=== PATIENT | male | born 1995 | race Caucasian/White ===

== ENCOUNTER 2020-10-16 07:57 | Emergency (ER) | payer OTHER ==
[2020-10-16 08:11] VITALS: BP 132/85
--- NOTE | 2020-10-16 09:23 | ED Physician Documentation ---
PD HPI LOWER EXT INJURY - Stated complaint Stated Complaint: R ANKLE PX - Chief complaint Chief Complaint: Ext Problem - History obtained from History obtained from: Patient - History of Present Illness PD HPI LOW EXT INJURY LOCATION: Right, Ankle Type of injury: Twist (dorsal) Where injury occurred: Street Timing - onset: How many days ago (2) Timing - duration: Days (2) Timing - details: Abrupt onset, Still present Improved by: Rest, Ice, Immobilization Worsened by: Moving, Palpating Associated symptoms: Swelling, Discolored. No: Weakness, Numbness Contributing factors: No: Anticoagulated Similar symptoms before: Diagnosis (ankle sprain) Recently seen: Not recently seen - Additional information Additional information: 24-year-old male who has had prior ankle sprains was out running 2 days ago when he had a hard dorsiflexion of his ankle and he is complaining of pain to the medial aspect of the ankle some discoloration along the course of the posterior tibial tendon. He reports functional difficulty with dorsiflexion. Review of Systems Constitutional: denies: Fever Respiratory: denies: Cough GI: denies: Vomiting PD PAST MEDICAL HISTORY - Past Medical History Past Medical History: Yes Cardiovascular: None Respiratory: None Neuro: None Endocrine/Autoimmune: None GI: None : None HEENT: None Psych: None Musculoskeletal: None Derm: None - Past Surgical History Past Surgical History: No - Present Medications Home Medications: Ambulatory Orders Medication Instructions Recorded Confirmed No Known Home Medications 01/10/20 01/10/20 - Allergies Allergies/Adverse Reactions: Allergies Allergy/AdvReac Type Severity Reaction Status Date / Time Penicillins Allergy Hives Verified 10/16/20 08:11 - Social History Does the pt smoke?: No Smoking Status: Never smoker Does the pt drink ETOH?: No - Immunizations Immunizations are current?: Yes PD ED PE NORMAL - Vitals Vital signs reviewed: Yes (hypertensive) - General General: Alert and oriented X 3, No acute distress, Well developed/nourished - HEENT HEENT: Atraumatic, PERRL, EOMI - Respiratory Respiratory: No respiratory distress - Derm Derm: Normal color, Warm and dry, No rash - Extremities Extremities: No deformity, No edema, Other (There is dense ecchymosis along the course of the posterior tibial tendon. There is tenderness along this area and not specifically to the malleolus. There is no tenderness to the proximal first. There is no tenderness to the lateral aspect of the ankle. There is swelling both medial and lateral.) Results - Vitals Vitals: Vital Signs - 24 hr 10/16/20 08:05 Temperature 36.9 C Heart Rate 94 Respiratory 16 Rate Blood Pressure 132/85 H O2 Saturation 99 Oxygen O2 Source Room air - Rads (name of study) ankle Radiology: Prelim report reviewed (Impression: Soft tissue swelling and joint effusion without evidence of acute osseous abnormality.), EMP read indepedently, See rad report Procedures - Splint (location) ankle Splint applied by: Tech Type of splint: Fiberglass, Posterior Other: Patient tolerated well, No complications, Neurovascular intact, Good alignment, Crutches provided (has own crutches) PD MEDICAL DECISION MAKING - ED course Complexity details: reviewed results, re-evaluated patient, considered differential, d/w patient ED course: 24-year-old male who ambulated in here on crutches after injuring his ankle 2 days ago has swelling and ecchymosis along the course of the posterior tibial tendon concerning for a tendon injury or injury to the tarsal tunnel. He is placed into a posterior splint and onto crutches and we will have him follow-up with orthopedics. Departure - Departure Disposition: 01 Home, Self Care Clinical Impression: Left ankle sprain Qualifiers: Encounter type: initial encounter Involved ligament of ankle: other ligament Qualified Code(s): S93.492A - Sprain of other ligament of left ankle, initial encounter Condition: Stable Instructions: ED Sprain Ankle W X Ray Follow-Up: AYDEN Coburn [Provider Group] [facility] [Provider Group]
--- NOTE | 2020-10-16 09:33 | XRAY Report ---
PROCEDURE: Ankle 3 View RT INDICATIONS: ankle inj TECHNIQUE: 3 views of the ankle were acquired. COMPARISON: None FINDINGS: Bones: No fractures. Alignment is normal. Ankle mortise is intact. Joint spaces are maintained. Soft tissues: Diffuse soft tissue swelling throughout the ankle. Small joint effusion. IMPRESSION: Soft tissue swelling and joint effusion without evidence of an acute osseous abnormality. Reviewed by: Michel Calderón DO on 10/16/2020 8:31 AM JEFF Approved by: Michel Calderón DO on 10/16/2020 8:31 AM JEFF Station ID: [id number]
== END 2020-10-16 09:55 | disposition home or self-care (01) ==
LOC: ED 07:57
DX: S93.491A Sprain of other ligament of right ankle, initial encounter (principal); S90.01XA Contusion of right ankle, initial encounter; X50.1XXA Overexertion from prolonged static or awkward postures, initial encounter; Y93.02 Activity, running; Y92.410 Unspecified street and highway as the place of occurrence of the external cause
CPT/HCPCS: 29515; 99282

== ENCOUNTER 2021-02-09 08:02 | Outpatient (CLI) | payer OTHER ==
--- NOTE | 2021-02-09 14:37 | MRI Report ---
PROCEDURE: Ankle RT W/O INDICATIONS: RIGHT ANKLE PAIN TECHNIQUE: Noncontrast sagittal T1 spin echo and T2 fast spin echo with fat saturation, axial proton density fas t spin echo and T2 fast spin echo with fat saturation, coronal T1 spin echo and T2 fast spin echo wit h fat saturation through the ankle/hindfoot. COMPARISON: None. FINDINGS: Image quality: Excellent. Bones and joints: Small to moderate amount of tibiotalar joint effusion is seen. Trace amount of flui d is seen in subtalar joint. There is marrow edema involving medial malleolus and anterior portion of distal tibia extending to distal tibial plafond. No discrete fracture line is seen. Mild edema invol ving lateral malleolus is also seen. There is also marrow edema seen in anterolateral aspect of talus and posterior medial portion of talus. No evidence of osteochondral injury of the talar dome is seen . Medial structures: The posterior tibialis is moderately thickened with low-grade intrasubstance T2 h yperintense signal at the level of talus and talonavicular joint suggestive of tendinosis and low-gra de intrasubstance partial thickness tear. The flexor digitorum longus, and flexor hallucis longus ten dons are intact. The posterior tibial neurovascular bundle appears normal within the tarsal tunnel, without extrinsic mass effect. Fluid signal and thickening involving superficial and deep portion of the deltoid ligament is seen suggestive of ligament sprain/partial thickness tear. The spring ligamen t components (superomedial calcaneonavicular, medioplantar oblique calcaneonavicular, and inferoplant ar longitudinal ligaments) are intact. Lateral structures: The anterior talofibular, calcaneofibular, and posterior talofibular ligaments a ppear thickened. More superiorly, the anterior and posterior tibiofibular ligaments appear normal, a s is the intermalleolar ligament. The tibiofibular syndesmosis is normal in width at 2 mm or less. The peroneus longus and brevis tendons demonstrate normal location and morphology. Adjacent bony per santoyo tubercle and retrotrochlear prominence are normal in size. The sinus tarsi demonstrates normal fatty signal, without edema, fibrosis, or cyst formation. Visualized sinus tarsi components (cervic al ligament, interosseous talocalcaneal ligament, roots of the inferior extensor retinaculum) appear normal. Anterior structures: The tibialis anterior, extensor hallucis longus, and extensor digitorum longus tendons appear intact. Posterior and plantar structures: Achilles tendon is intact. Medial and lateral bands of the planta r fascia are of normal thickness. No abductor digiti quinti muscle atrophy to suggest Chamberlain neuropa thy. IMPRESSION: 1. Bony contusion involving medial malleolus and adjacent posterior medial portion of talus without d iscrete fracture line. Similar marrow edema also noted involving anterior portion of distal tibial pl afond without discrete fracture line. Marrow edema is also seen involving lateral malleolus and adjac ent anterolateral aspect of talus. Small to moderate amount of tibiotalar joint effusion, no gross lo ose body. 2. Moderate tendinosis and low-grade intrasubstance partial thickness involving posterior tibialis te ndon at the level of talus and talonavicular joint. Rest of the ankle tendons are intact. 3. Sprain/low to moderate grade intrasubstance partial thickness tear involving deltoid ligament. Low -grade sprain involving anterior and posterior talofibular ligaments and calcaneofibular ligament. Reviewed by: Efrain Reynoso MD on 02/09/2021 2:36 PM PDT Approved by: Efrain Reynoso MD on 02/09/2021 2:36 PM PDT Station ID: [id number]
== END 2021-02-09 08:03 | disposition home or self-care (01) ==
LOC: DI 08:02
PROVIDERS: ATTEND Student in an Organized Health Care Education/Training Program
DX: S90.01XA Contusion of right ankle, initial encounter (principal); M25.471 Effusion, right ankle; M67.873 Other specified disorders of tendon, right ankle and foot; S93.421A Sprain of deltoid ligament of right ankle, initial encounter; S93.491A Sprain of other ligament of right ankle, initial encounter; S93.411A Sprain of calcaneofibular ligament of right ankle, initial encounter

== ENCOUNTER 2021-11-29 07:41 | Emergency (ER) | payer OTHER ==
[2021-11-29 07:49] VITALS: BP 148/87
[2021-11-29] MEDS ORDERED: HYDROmorphone 1 MG/ML CARPUJECT IM STA (08:05)
[2021-11-29] MEDS ORDERED: KETOROLAC 60 MG/2 ML VIAL IM STA (08:05)
--- NOTE | 2021-11-29 08:06 | ED Physician Documentation ---
PD HPI BACK PAIN - Stated complaint Stated Complaint: BACK PX - Chief complaint Chief Complaint: Back Pain - History obtained from History obtained from: Patient - Additional information Additional information: Otherwise healthy 25-year-old gentleman who is active duty in the [employer] developed back pain yesterday which worsened overnight. There was no specific trauma. It is in the low back and overnight started radiating getting down into the back of both buttocks and legs. There is no associated weakness, numbness, tingling, saddle anesthesia, fever, or incontinence. He tried Tylenol, ibuprofen, and a lidocaine patch at home which were slightly helpful but he is still in a lot of pain. He is accompanied by his who is driving. Review of Systems Constitutional: reports: Reviewed and negative Ears: reports: Reviewed and negative Nose: reports: Reviewed and negative Throat: reports: Reviewed and negative Respiratory: reports: Reviewed and negative PD PAST MEDICAL HISTORY - Past Medical History Cardiovascular: None Respiratory: None Neuro: None Endocrine/Autoimmune: None GI: None : None HEENT: None Psych: None Musculoskeletal: None Derm: None - Past Surgical History Past Surgical History: No - Present Medications Home Medications: Ambulatory Orders Medication Instructions Recorded Confirmed Cyclobenzaprine [Flexeril] 10 mg PO TID PRN #20 tablet 11/29/21 HYDROcod/ACETAM 5/325 [Eleanor 5/325] 1 - 2 tab PO Q6H PRN #15 tablet 11/29/21 - Allergies Allergies/Adverse Reactions: Allergies Allergy/AdvReac Type Severity Reaction Status Date / Time Penicillins Allergy Hives Verified 11/29/21 07:49 - Social History Does the pt smoke?: No Smoking Status: Never smoker Does the pt drink ETOH?: No - Immunizations Immunizations are current?: Yes PD ED PE NORMAL - Vitals Vital signs reviewed: Yes - General General: Alert and oriented X 3, Other (He is comfortable at rest, but any motion such as attempts to sit up resulted in severe pain.) - Abdomen Abdomen: Soft, Non tender - Back Back: No spinal TTP - Extremities Extremities: Other (The patient has equal and normal Achilles and patellar reflexes bilaterally. Normal sensation in all areas of the legs. Patient denies saddle anesthesia. Normal strength in flexion-extension at the ankles, knees, and flexion of the hips.) - Neuro Neuro: Alert and oriented X 3, Normal speech Results - Vitals Vitals: Vital Signs - 24 hr 11/29/21 07:47 Temperature 36.8 C Heart Rate 72 Respiratory 16 Rate Blood Pressure 148/87 H O2 Saturation 100 Oxygen O2 Source Room air PD MEDICAL DECISION MAKING - ED course ED course: This patient has seemingly uncomplicated musculoskeletal back pain. The patient has no "red flags." Specifically denies IV drug use, fevers, incontinence, saddle anesthesia. Spinal epidural abscess was considered, given that the patient has no fever, is not diabetic, has no spinal tenderness, does not use IV drugs, and has no bilateral neurologic symptoms, the diagnosis of spinal epidural abscess is considered exceedingly unlikely. Feeling much better after 1 mg of IM Dilaudid and 60 mg of IM Toradol with recovery of functionality. Departure - Departure Disposition: 01 Home, Self Care Clinical Impression: Back spasm Condition: Good Record reviewed to determine appropriate education?: Yes Instructions: ED Spasm Back No Trauma Prescriptions: Cyclobenzaprine [Flexeril] 10 mg PO TID PRN #20 tablet PRN Reason: Spasms HYDROcod/ACETAM 5/325 [Eleanor 5/325] 1 - 2 tab PO Q6H PRN #15 tablet PRN Reason: Pain Comments: [facility] [place]. Return for new or worsening symptoms. Follow-up with your doctor, next available appointment. I am prescribing a short course of narcotic pain medication for you. These are potentially dangerous and addictive medications that should be used carefully. These medications may constipate you. Take an ycau-hgz-aukziqu stool softener (docusate) twice daily with plenty of water while taking these medications. If you go 24 hours without a bowel movement, take [id number] miralax, per package instructions. Do not drink or drive while taking these medications. If you received narcotic or sedating medications while in the emergency department, do not drive for 24 hours. Store this medication in a safe, secure place and out of reach of children. It is a violation of federal law to give or sell this medication to another person or to use in a manner other than prescribed. The ED will not refill narcotic prescriptions, including prescriptions lost or stolen. To dispose of unwanted medications: 1. [facility] [address] [facility] in [place] has a medication drop box. They accept prescription medications (in pill form) Saturday through Saturday 9:00 a.m. to 5:00 p.m. 2. The [facility] accepts prescription medications (in pill form only) for disposal year round. Call for more information. 3. Contact the [facility] for the next [facility] sponsored prescription drug collection event. , [phone], or [phone]; Note that many narcotic pain relievers also contain Tylenol/acetaminophen. Please ensure that your total dose of acetaminophen from all sources does not exceed 3 g (3000 mg) per day. Forms: Activity restrictions Discharge Date/Time: 11/29/21 09:08
== END 2021-11-29 09:08 | disposition home or self-care (01) ==
LOC: ED 07:41
DX: M62.830 Muscle spasm of back (principal)
CPT/HCPCS: 96372; 99282; 99283; J1170

== ENCOUNTER 2022-09-22 07:33 | Outpatient (CLI) | payer OTHER ==
--- NOTE | 2022-09-24 10:38 | MRI Report ---
PROCEDURE: ANKLE WO - RT INDICATIONS: RIGHT ANKLE PAIN TECHNIQUE: Noncontrast Magnetic Resonance Imaging (MRI) of the ankle/hindfoot was performed utilizing the follow ing sequences: sagittal T1 spin echo, sagittal T2 fast spin echo with fat saturation, axial PD fast s pin echo, axial T2 fast spin echo with fat saturation, coronal T1 spin echo, and coronal T2 fast spin echo with fat saturation. COMPARISON: Right ankle MRI 02/09/2021 FINDINGS: Image quality: Excellent. Bones and joints: No acute trabecular bone injury or fracture. No hindfoot coalition. Partial-thickness cartilage loss is seen at the anterior aspect of the mortise joint. Marginal segments are seen at the anteromedial t alus and adjacent tibial plafond that could contribute to anterior osseous impingement. Medial structures: Remote prior low-grade sprain of the deltoid ligament. The visualized portions of the spring ligament complex are intact. Mild posterior tibial tenosynovitis at the level of the distal tibia. The flexor digitorum longus and flexor hallucis longus tendons are intact. The posterior tibial neurovascular b undle appears normal within the tarsal tunnel, without extrinsic mass effect. Lateral structures: The anterior and posterior distal tibiofibular ligaments are intact. Remote prior low-grade sprains o f the anterior and posterior talofibular ligaments and the calcaneofibular ligament. The peroneus ericka nina and peroneus brevis tendons are intact. The sinus tarsi demonstrates normal fatty signal. Anterior structures: The tibialis anterior, extensor hallucis longus, and extensor digitorum longus tendons appear intact. Posterior and plantar structures: The Achilles tendon is intact. The medial and lateral bands of the plantar fascia are within normal l imits. No disproportionate atrophy of the abductor digiti minimi muscle. IMPRESSION: 1.Focal cartilage loss is seen at the anterior tibial plafond and with marginal osteophytes at the an teromedial tibial plafond and adjacent portion of the talus, which could contribute to anterior osseo us impingement. 2.Remote prior low-grade sprain of the deltoid ligament. 3.Mild posterior tibialis tenosynovitis. 4.Remote prior low-grade sprains of the anterior and posterior talofibular ligaments and calcaneofibu lar ligament. Reviewed by: Man Burch MD on 09/24/2022 10:36 AM PDT Approved by: Man Bruch MD on 09/24/2022 10:36 AM PDT Station ID: [id number]
== END 2022-09-22 07:34 | disposition home or self-care (01) ==
LOC: DI 07:33
PROVIDERS: ATTEND Student in an Organized Health Care Education/Training Program
DX: M25.771 Osteophyte, right ankle (principal); M94.271 Chondromalacia, right ankle and joints of right foot; S93.421D Sprain of deltoid ligament of right ankle, subsequent encounter; M65.9 Synovitis and tenosynovitis, unspecified; S93.491D Sprain of other ligament of right ankle, subsequent encounter; S93.411D Sprain of calcaneofibular ligament of right ankle, subsequent encounter